=== PATIENT | male | born 1995 | race Two or more races ===

== ENCOUNTER 2024-02-24 16:38 | Inpatient (IN) | payer OTHER ==
[~2024-02-24] VITALS: Ht 167.6 cm; Wt 47.6 kg
--- NOTE | 2024-02-24 17:44 | NUR ---
PTE ALERTA Y ORIENTADO X3 REFIERE VENIR A NEGRITO DEBIDO A QUE EL MISMO TIPTON ESTADO TENIENDO TOS, DOLOR DE PECHO AL RESPIRAR, DOLOR DE HADLEY. SE MIDEN S/V Y SE REALIZA EKG EL CUAL ES PRESENTADO A LA DR NUNO Y LA MISMA REFIERE QUE SE UBIQUE EN FAST TRACK.
[2024-02-24] MEDS ORDERED: 0.9 % SODIUM CHLORIDE 1,000 ML IV STA (19:43)
--- NOTE | 2024-02-24 20:25 | NUR ---
SE RECIBE PTE ALERTA Y ORIENTADO X3 Y SE EDUCA SOBRE TX A RECIBIR EN EL AREA EL MISMO REFIERE ENTENDER. SE CANALIZA PTE EN BRAZO HUNG POR DONDE SE COLOCA IVFLUIDS. SE REALIZAN MUESTRAS DE LAB Y SE ENVIAN DE FORMA INMEDIATA A LAB. SE ACOMODA PTE EN LUBA EN AREA DE TRIAGE PEDIATRICO.
[2024-02-24 20:39] LABS: HEMATOCRIT 43.7 % (39.0-48.0); HEMOGLOBIN 14.8 g/dL (13-16.00); MEAN CELL VOLUME 82.2 fL (80.0-100.00); MEAN CORPUSCULAR HEMOGLOBIN 27.9 pg (27.00-32.0); PLATELET COUNT 246 K/uL (150-450); RED BLOOD COUNT 5.31 M/uL (4.00-6.00); RED CELL DISTRIBUTION WIDTH 12.8 % (11.5-14.5)
[2024-02-24 21:08] LABS: ALBUMIN 2.8 gm/dL (3.4-5.0); BILIRUBIN TOTAL 0.57 mg/dL (0.3-1.2); CALCIUM 8.8 mg/dL (8.5-10.1); CREATININE SERUM 0.7 mg/dL (0.70-1.30); GFR 132.41; GLOBULINA 4.4 G/DL (2.4-3.5); POTASSIUM 3.43 mEq/L (3.5-5.1); TOTAL PROTEIN 7.2 gm/dL (6.4-8.2)
[2024-02-24] MEDS ORDERED: GUAIFEN/DEXTROMETHORPHAN/PE 10 ML BLIST.PACK PO ONE (23:45)
[2024-02-25] MEDS ORDERED: RINGERS SOLUTION,LACTATED 1,000 ML IV STA (04:28)
[2024-02-25] MEDS ORDERED: METHYLPREDNISOLONE SOD SUCC 125 MG VIAL IV STA (04:30)
[2024-02-25] MEDS ORDERED: ONDANSETRON HCL 2 MG/ML VIAL IV STA (04:31)
[2024-02-25] MEDS ORDERED: FAMOtidine 10 MG/ML (4ML VIAL) IV PUSH STA (04:31)
--- NOTE | 2024-02-25 04:35 | NUR ---
SE UBICA A PACIENTE EN AREA DE OBSERVACION, SE UBICA EN LUBA 7. RECIBE RE EVALUACION POR Y DA ORDEN DE COLECTAR NUEVAS MUESTRAS DE LAB, ADMINISTRACION DE MEDICAMENTOS Y REPETIR EKG. SE MANTIENE BAJO OBSERVACION POR CAMBIOS SIGNIFICATIVOS.
[2024-02-25] MEDS ORDERED: PROPRANOLOL HCL 40 MG TABLET PO STA (06:12)
--- NOTE | 2024-02-25 07:03 | NUR ---
SE CONECTA PACIENTE A MONITOR CARDIACO Y OXIMETRIA DE PULSO. SE COLOCA CANULA NASAL A 2LT/MIN.
--- NOTE | 2024-02-25 08:26 | NUR ---
SE RECIBE PACIENTE ALERTA Y ORIENTADO X 3 ESFERAS EN CAMA CON BARANDAS ELEVADAS POR SEGURIDAD. PRESENTANDO BUEN PATRON RESPIRATORIO. ASISTIDO POR HEATH CANULA NASAL A 2LTS. RECIBIENDO IV'S R/L BAJANDO A 200ML/HR AREA DE VENOPUNCION ANISHA DE EDEMA Y ERITEMA. PENDIENTE CONSULTA CON DR.ORTIZ ONEILL. SE MANTIENE EN OBSERVACION POR CAMBIOS.
[2024-02-25] MEDS ORDERED: PROPRANOLOL HCL 60 MG TABLET PO SCH (17:57)
[2024-02-25] MEDS ORDERED: DEXTROSE 5 % AND 0.9 % NACL 1,000 ML IV SCH (18:00)
[2024-02-25] MEDS ORDERED: POTASSIUM CHLORIDE 20MEQ/100ML H2O PB IV ONE (18:00)
[2024-02-25] MEDS ORDERED: ACETAMINOPHEN 500 MG GEL..CAP PO PRN (18:00)
[2024-02-25 18:57] LABS: INR 1.3; PARTIAL THROMBOPLASTIN TIME 29.1 SECONDS (22.0-34.0); PROTHROMBIN TIME 13.9 SECONDS (9.0-11.5)
[2024-02-25 19:22] LABS: URINE APPEARANCE Clear; URINE BILIRRUBIN Negative (NEGATIVE); URINE BLOOD Trace; URINE COLOR Yellow; URINE KETONE Negative (NEGATIVE); URINE LEUKOCYTE Negative; URINE NITRATE Negative; URINE PROTEIN Negative (NEGATIVE)
[2024-02-25 19:25] LABS: URINE RBC 22.5 uL (0.0-20.8); URINE WBC 2.2 uL (0.0-23.2)
[2024-02-25 19:26] LABS: MAGNESIUM 1.7 mg/dL (1.8-2.4); PHOSPHOROUS 2.1 mg/dL (2.5-4.9)
[2024-02-25 19:28] LABS: URINE EPITHELIAL CELLS 0.9 uL (0.0-38.8); URINE GLUCOSE 250 MG/DL (NEGATIVE)
[2024-02-25 20:16] LABS: FREE TRIODOTIRONINE 16.85 pg/ml (2.18-3.98); T4 FREE 7.34 NG/ML (0.76-1.46)
[2024-02-25 20:30] VITALS: BP 137/71; O2SAT 97
[2024-02-25] MEDS ORDERED: DEXAMETHASONE SODIUM PHOSPHATE 4 MG/ML VIAL IV SCH (21:00)
[2024-02-25 21:32] VITALS: BP 140/70; O2SAT 97
[2024-02-26] VITALS: BP 152/74; O2SAT 95
[2024-02-26 00:06] VITALS: BP 152/74; O2SAT 95
[2024-02-26 02:00] VITALS: O2SAT 95
[2024-02-26 04:00] VITALS: O2SAT 94
[2024-02-26 04:46] VITALS: BP 141/72; O2SAT 94
[2024-02-26] MEDS ORDERED: FAMOTIDINE/PF 20 MG in 0.9 % SODIUM CHLORIDE 8 ML IV PUSH SCH (09:00)
[2024-02-26] MEDS ORDERED: ENOXAPARIN SODIUM 40 MG/0.4 ML SYRINGE SUBCUTANEO SCH (09:00)
[2024-02-26] MEDS ORDERED: PROPRANOLOL HCL PO SCH (09:00)
[2024-02-26 10:03] LABS: CORTISOL 28.74 ug/dl; PROCALCITONIN 0.078 ng/ml (0.020-0.080)
[2024-02-26] MEDS ORDERED: ATENOLOL 25 MG TABLET PO SCH (13:39)
[2024-02-26] MEDS ORDERED: PROPYLTHIOURACIL 50 MG TABLET PO SCH (13:47)
[2024-02-26 15:15] VITALS: BP 145/78; O2SAT 100
== END 2024-02-26 20:55 | disposition left against medical advice (07) | DRG 645 ==
LOC: ER 16:39 → ICU-2 02-25 18:27
PROVIDERS: General Practice; ADMIT Student in an Organized Health Care Education/Training Program; ATTEND Student in an Organized Health Care Education/Training Program
PROC: BG44ZZZ Ultrasonography of Thyroid Gland (ICD-10-PCS; principal; 2024-02-25)
PROC: B246ZZZ Ultrasonography of Right and Left Heart (ICD-10-PCS; 2024-02-25)
DX: E05.00 Thyrotoxicosis with diffuse goiter without thyrotoxic crisis or storm (principal); E04.9 Nontoxic goiter, unspecified; R00.0 Tachycardia, unspecified; Z53.29 Procedure and treatment not carried out because of patient's decision for other reasons